=== PATIENT | female | born 1985 | race Hispanic/Latino ===

== ENCOUNTER 2022-06-10 11:27 | Emergency (ER) | payer OTHER ==
[~2022-06-10] VITALS: Ht 154.9 cm; Wt 63.5 kg
[2022-06-10] MEDS ORDERED: BROMFED DM COU118 ML PO (12:30)
[2022-06-10] MEDS ORDERED: IBUPROFEN800 MG PO (12:30)
== END 2022-06-10 13:14 | disposition home or self-care (01) ==
LOC: FSED 11:31
DX: R50.9 Fever, unspecified (principal); J10.1 Influenza due to other identified influenza virus with other respiratory manifestations; R05.9 Cough, unspecified
CPT/HCPCS: 99282